=== PATIENT | male | born 1980 | race Caucasian/White ===

== ENCOUNTER 2024-03-09 21:59 | Emergency (ER) | payer BC ==
[~2024-03-09] VITALS: Ht 177.8 cm; Wt 86.2 kg
[2024-03-09 22:53] VITALS: TEMP 98.5
[2024-03-09] MEDS ORDERED: TDAP [DIPH/PERTUSSIS/TET] 0.5 ML VIAL IM ONE (23:13)
[2024-03-09] MEDS: TDAP [DIPH/PERTUSSIS/TET] 0.5 ML VIAL IM ONE (23:35)
[2024-03-09 23:40] VITALS: BP 128/81; O2SAT 99
== END 2024-03-09 23:40 | disposition home or self-care (01) ==
LOC: ER 22:07
DX: S41.011A Laceration without foreign body of right shoulder, initial encounter (principal); W22.09XA Striking against other stationary object, initial encounter; Y93.89 Activity, other specified; Y92.090 Kitchen in other non-institutional residence as the place of occurrence of the external cause; Y99.8 Other external cause status
CPT/HCPCS: 90715